=== PATIENT | male | born 1935 | race Caucasian/White ===

== ENCOUNTER 2018-04-27 08:29 | Day surgery (SDC) | payer MEDICARE, OTHER ==
[~2018-04-27] VITALS: Ht 167.6 cm; Wt 110.1 kg
[~2018-04-27 08:29] MED LIST: ACET325 PO; ACET500 PO; ALLO100 PO; AMLO5 PO; CRESTOR PO; Crestor20 MG; FENO145 PO; FLUT.05NI; NEBI10 PO; OMEP40CA12 PO; ROSU10TA PO; TRIHYD253A PO; UBID10; UBID100 PO
[2018-04-27] MEDS ORDERED: QUIN10 PO (09:25)
[2018-04-27] MEDS ORDERED: ALLO300 PO (09:25)
== END 2018-04-27 10:31 | disposition home or self-care (01) ==
LOC: ORSCSDS 08:29
PROVIDERS: Ophthalmology
PROC: 08RJ3JZ Replacement of Right Lens with Synthetic Substitute, Percutaneous Approach (ICD-10-PCS; principal; 2018-04-27 10:00)
DX: H25.11 Age-related nuclear cataract, right eye (principal); I10 Essential (primary) hypertension; G47.33 Obstructive sleep apnea (adult) (pediatric); E78.00 Pure hypercholesterolemia, unspecified; E66.01 Morbid (severe) obesity due to excess calories; Z68.39 Body mass index [BMI] 39.0-39.9, adult; Z79.899 Other long term (current) drug therapy
CPT/HCPCS: J2250; J3010; J3301; J7120; V2632

== ENCOUNTER 2018-06-11 20:09 | Inpatient (IN) | payer MEDICARE, OTHER ==
[~2018-06-11] VITALS: Ht 177.8 cm; Wt 107.1 kg
[~2018-06-11 20:09] MED LIST changes: +ALLO300 PO; +QUIN10 PO
[2018-06-11 20:45] LABS: BASOPHILS ABSOLUTE AUTO 0.02 K/mm3 (0.00-0.23); BASOPHILS PERCENT AUTO 0 % (0-2); EOSINOPHILS ABSOLUTE AUTO 0.04 K/mm3 (0.00-0.68); EOSINOPHILS PERCENT AUTO 0 % (0-6); Hematocrit 44.6 % (37.0-53.0); Hemoglobin 14.4 g/dL (13.5-17.5); IMMATURE GRAN ABSOLUTE AUTO 0.03 K/mm3 (0.00-0.10); IMMATURE GRAN PERCENT AUTO 0 % (0-1); LYMPHOCYTES ABSOLUTE AUTO 0.61 K/mm3 (0.84-5.20); LYMPHOCYTES PERCENT AUTO 6 % (21-46); MONOCYTES ABSOLUTE AUTO 1.24 K/mm3 (0.16-1.47); MONOCYTES PERCENT AUTO 11 % (4-13); Mean Corpuscular HGB 29.5 pg (26.0-34.0); Mean Corpuscular HGB Conc 32.3 g/dL (31.5-36.5); Mean Corpuscular Volume 91 fL (80-100); Mean Platelet Volume 10.8 fL (9.1-12.4); NEUTROPHILS ABSOLUTE AUTO 9.17 K/mm3 (1.96-9.15); NEUTROPHILS PERCENT AUTO 82 % (41-73); Platelet Count 152 K/mm3 (150-400); RDW Coefficient Variation 13.8 % (11.7-14.2); RDW Standard Deviation 46.5 fL (35.1-46.3); Red Blood Cell Count 4.88 M/mm3 (4.30-5.90); White Blood Cell Count 11.11 K/mm3 (4.00-11.30)
[2018-06-11 21:03] LABS: Alanine Aminotransfer (ALT/SGP 584 U/L (12-78); Albumin/Globulin Ratio 0.7 (0.8-1.8); Alk Phos 332 U/L (50-136); Anion Gap 11 mmol/L (6-16); Aspartate Aminotrans (AST/SGOT 516 U/L (12-37); Bilirubin, Total 3.7 mg/dL (0.1-1.0); Blood Urea Nitrogen 20 mg/dL (8-24); Bun/Creatinine Ratio 16.8 (12.0-20.0); CO2, Blood 22 mmol/L (21-32); Calcium, Blood 8.6 mg/dL (8.5-10.1); Chloride, Blood 105 mmol/L (98-108); Creatinine, Blood 1.19 mg/dL (0.60-1.20); Globulin, Blood 4.3 g/dL (2.2-4.0); Glomerular Filtration Rate >60 (60-); Glucose, Blood 161 mg/dL (70-99); Potassium, Blood 3.6 mmol/L (3.5-5.5); Sodium, Blood 138 mmol/L (136-145); Total Protein, Blood 7.3 g/dL (6.4-8.2)
[2018-06-12 00:11] LABS: Source, Urine Clean Catch
[2018-06-12 00:18] LABS: Blood, Urine 3+ (Neg); Glucose Qualitative, Urine Neg (Neg); Ketones, Urine Neg (Neg); Leukocyte Esterase, Urine 1+ (Neg); Nitrite, Urine Neg (Neg); Protein, Urine 3+ (Neg); Urobilinogen, Urine 3+ (Normal)
[2018-06-12 00:25] LABS: Bilirubin, Urine 1+ (Neg)
[2018-06-12 00:26] LABS: Appearance, Urine Clear (Clear); Color, Urine Amber (P-Yellow)
[2018-06-12 00:27] LABS: Bacteria Mod /hpf; Squamous Epithelial Cells Rare /hpf (Few)
--- NOTE | 2018-06-12 08:22 | NUR ---
IN ROOM TO ASSESS PATIENT
[2018-06-12 09:18] LABS: Alanine Aminotransfer (ALT/SGP 514 U/L (12-78); Albumin, Blood 2.4 g/dL (3.4-5.0); Albumin/Globulin Ratio 0.6 (0.8-1.8); Alk Phos 283 U/L (50-136); Anion Gap 6 mmol/L (6-16); Aspartate Aminotrans (AST/SGOT 405 U/L (12-37); Bilirubin, Total 3.1 mg/dL (0.1-1.0); Blood Urea Nitrogen 14 mg/dL (8-24); Bun/Creatinine Ratio 14.7 (12.0-20.0); CO2, Blood 25 mmol/L (21-32); Calcium, Blood 8.3 mg/dL (8.5-10.1); Chloride, Blood 107 mmol/L (98-108); Creatinine, Blood 0.95 mg/dL (0.60-1.20); Globulin, Blood 3.7 g/dL (2.2-4.0); Glomerular Filtration Rate >60 (60-); Glucose, Blood 130 mg/dL (70-99); Potassium, Blood 3.4 mmol/L (3.5-5.5); Sodium, Blood 138 mmol/L (136-145); Total Protein, Blood 6.1 g/dL (6.4-8.2)
[2018-06-12] MEDS ORDERED: Co Q-1010 MG PO (10:04)
--- NOTE | 2018-06-12 12:34 | NUR ---
PT TO IMAGING VIA [facility] FOR MRI STUDY.
--- NOTE | 2018-06-12 18:17 | NUR ---
[facility] TRANSFER SUMMARY: PT IS A&O TO FAMILY AND FOLLOWING DIRECTIONS. IV WAS S.L. FOR TRANSPORT TO [facility]. PT'S CPAP LABELED WITH NAME AND GIVEN TO SANDY ([facility]) TO TRANSFER WITH PT. REPORT CALLED TO MALI GAN AND SHIRLEY ALARCON RN AT [facility] [phone]. PT IS INCONT AT TIMES; ATTENDS CHANGED PRIOR TO D/C. HE HAS BEEN NPO SINCE ADMISSION. AT BEDSIDE DURING TRANSFER SHE IS TAKING HIS OTHER BELONGINGS HOME WITH HER.
--- NOTE | 2018-06-12 18:43 | NUR ---
IV LEFT IN PLACE FOR TRANSFER. RECIEVING RN IS AWARE.
== END 2018-06-12 18:12 | disposition short-term general hospital (02) | DRG 446 ==
LOC: ER 20:09 → MEDS 20:10
PROVIDERS: Physician Assistant; ADMIT Family Medicine
DX: K80.50 Calculus of bile duct without cholangitis or cholecystitis without obstruction (principal); R74.0 Nonspecific elevation of levels of transaminase and lactic acid dehydrogenase [LDH]; N20.0 Calculus of kidney; I10 Essential (primary) hypertension; G47.33 Obstructive sleep apnea (adult) (pediatric); E78.5 Hyperlipidemia, unspecified; M10.9 Gout, unspecified; M54.9 Dorsalgia, unspecified; G89.29 Other chronic pain; Z87.11 Personal history of peptic ulcer disease; Z79.899 Other long term (current) drug therapy; Z87.820 Personal history of traumatic brain injury
CPT/HCPCS: 36415; 74176; 74181; 76705; 80053; 81001; 82140; 83690; 85025; 86301; 87086; 96360-59; 96361-59; 99285-25; J0694; J7030; J7042; J7120

== ENCOUNTER → 2018-09-26 | Outpatient (CLI) | payer MEDICARE, OTHER ==
[~2018-09-26] MED LIST changes: +Co Q-1010 MG PO
== END | disposition home or self-care (01) ==
LOC: LAB SHORT 15:37 → PLD 15:37
DX: C44.42 Squamous cell carcinoma of skin of scalp and neck (principal)
CPT/HCPCS: 88305

== ENCOUNTER → 2021-10-21 | Outpatient (CLI) | payer MEDICARE, OTHER ==
[2021-10-22 11:13] LABS: Microalb/Creat Ratio UR, Rand 528.696 mg/g (0.000-30.000)
== END | disposition home or self-care (01) ==
LOC: LAB 17:15 → LAB SHORT 17:15
PROVIDERS: Physician Assistant
DX: R94.4 Abnormal results of kidney function studies (principal)
CPT/HCPCS: 82043; 82570

== ENCOUNTER 2022-04-09 15:46 | Inpatient (IN) | payer MEDICARE, OTHER ==
[~2022-04-09] VITALS: Ht 177.8 cm; Wt 90.7 kg
[~2022-04-09 15:46] MED LIST changes: +Prinivil10 MG PO; -QUIN10 PO
[2022-04-09 16:11] LABS: BASOPHILS ABSOLUTE AUTO 0.02 K/mm3 (0.00-0.23); BASOPHILS PERCENT AUTO 0 % (0-2); EOSINOPHILS ABSOLUTE AUTO 0.15 K/mm3 (0.00-0.68); EOSINOPHILS PERCENT AUTO 2 % (0-6); Hematocrit 41.6 % (37.0-53.0); Hemoglobin 13.8 g/dL (13.5-17.5); IMMATURE GRAN ABSOLUTE AUTO 0.03 K/mm3 (0.00-0.10); IMMATURE GRAN PERCENT AUTO 0 % (0-1); LYMPHOCYTES ABSOLUTE AUTO 1.68 K/mm3 (0.84-5.20); LYMPHOCYTES PERCENT AUTO 20 % (21-46); MONOCYTES ABSOLUTE AUTO 0.85 K/mm3 (0.16-1.47); MONOCYTES PERCENT AUTO 10 % (4-13); Mean Corpuscular HGB 30.1 pg (26.0-34.0); Mean Corpuscular HGB Conc 33.2 g/dL (31.5-36.5); Mean Corpuscular Volume 91 fL (80-100); Mean Platelet Volume 10.7 fL (9.1-12.4); NEUTROPHILS ABSOLUTE AUTO 5.82 K/mm3 (1.96-9.15); NEUTROPHILS PERCENT AUTO 68 % (41-73); Platelet Count 186 K/mm3 (150-400); RDW Coefficient Variation 13.6 % (11.7-14.2); RDW Standard Deviation 45.4 fL (35.1-46.3); Red Blood Cell Count 4.58 M/mm3 (4.30-5.90); White Blood Cell Count 8.55 K/mm3 (4.00-11.30)
[2022-04-09 16:20] LABS: Albumin, Blood 3.1 g/dL (3.4-5.0); Albumin/Globulin Ratio 0.9 (0.8-1.8); Bilirubin, Total 0.3 mg/dL (0.1-1.0); Bun/Creatinine Ratio 22.2 (12.0-20.0); Calcium, Blood 8.5 mg/dL (8.5-10.1); Creatinine, Blood 1.17 mg/dL (0.60-1.20); Globulin, Blood 3.3 g/dL (2.2-4.0); Potassium, Blood 3.6 mmol/L (3.5-5.5); Total Protein, Blood 6.4 g/dL (6.4-8.2)
[2022-04-09 19:45] LABS: Source, Urine Straight Cath
[2022-04-09 20:04] LABS: Bilirubin, Urine Neg (Neg); Blood, Urine 2+ (Neg); Color, Urine Yellow (P-Yellow); Glucose Qualitative, Urine Neg (Neg); Ketones, Urine Neg (Neg); Leukocyte Esterase, Urine Neg (Neg); Nitrite, Urine Neg (Neg); Protein, Urine 2+ (Neg); Urobilinogen, Urine NORM (Normal)
[2022-04-09 20:16] LABS: Appearance, Urine Hazy (Clear)
[2022-04-09 20:17] LABS: Bacteria Mod /hpf; Squamous Epithelial Cells Rare /hpf (Few); White Blood Cells, Urine 0-2 /hpf (0-5)
[2022-04-09 20:18] LABS: Amorphous Light (0-Heavy); Mucus Light (0-Heavy)
[2022-04-10] MEDS ORDERED: VENL75ER PO (01:28)
[2022-04-10 02:15] LABS: BASOPHILS ABSOLUTE AUTO 0.02 K/mm3 (0.00-0.23); BASOPHILS PERCENT AUTO 0 % (0-2); EOSINOPHILS ABSOLUTE AUTO 0.07 K/mm3 (0.00-0.68); EOSINOPHILS PERCENT AUTO 1 % (0-6); Hematocrit 44.1 % (37.0-53.0); Hemoglobin 14.7 g/dL (13.5-17.5); IMMATURE GRAN ABSOLUTE AUTO 0.03 K/mm3 (0.00-0.10); IMMATURE GRAN PERCENT AUTO 0 % (0-1); LYMPHOCYTES ABSOLUTE AUTO 1.31 K/mm3 (0.84-5.20); LYMPHOCYTES PERCENT AUTO 12 % (21-46); MONOCYTES PERCENT AUTO 8 % (4-13); Mean Corpuscular HGB 29.8 pg (26.0-34.0); Mean Corpuscular HGB Conc 33.3 g/dL (31.5-36.5); Mean Corpuscular Volume 90 fL (80-100); Mean Platelet Volume 10.8 fL (9.1-12.4); NEUTROPHILS PERCENT AUTO 79 % (41-73); Platelet Count 206 K/mm3 (150-400); RDW Coefficient Variation 13.6 % (11.7-14.2); RDW Standard Deviation 45.1 fL (35.1-46.3); Red Blood Cell Count 4.93 M/mm3 (4.30-5.90); White Blood Cell Count 11.33 K/mm3 (4.00-11.30)
[2022-04-10 03:13] LABS: Albumin, Blood 3.4 g/dL (3.4-5.0); Albumin/Globulin Ratio 0.8 (0.8-1.8); Bilirubin, Total 0.3 mg/dL (0.1-1.0); Bun/Creatinine Ratio 22.7 (12.0-20.0); Calcium, Blood 9.5 mg/dL (8.5-10.1); Creatinine, Blood 1.19 mg/dL (0.60-1.20); Potassium, Blood 4.1 mmol/L (3.5-5.5); Total Protein, Blood 7.4 g/dL (6.4-8.2)
--- NOTE | 2022-04-10 05:16 | NUR ---
RECIEVED PATIENT FROM THE ED, ALERT AND ORIENTED TO SELF. STATES HE KNOWS HE IS AT THE HOSPITAL BUT NOT WHEN, WHERE, OR WHY. L SIDE DEFICITES (L ARM DRIFT, WEAK CABLE WIRER, LIPS AND TOUGH). CARDIAC MURMER AND POSSIBLE REGURGITATION HEARD, TELE NS, NO EDEMA AND PULSES STRONG. SKIN RED/LANETTE BUE/FACE/CHEST/BACK AND BILAT FEET. MD CALLED FOR FAILED BEDSIDE SWALLOW EVAL AND HTN, ST EVAL AND HYDRALAZINE FOR SBP >190 ORDER PLACED. ABRAISION/BANDAGE FROM HOME TO L LBOW. NO OTHER ISSUES TO REPORT.
[2022-04-10 10:39] LABS: CPK Creatine Kinase 32 U/L (39-308)
--- NOTE | 2022-04-10 11:17 | NUR ---
"Spiritual Care | Pt. Request. Pt. is resting but responds when I enter the room. Pt. displays evidence of being pleasantly confused. However, Pt. clearly remembers the location of his home and can verbalize the driving directions. Establish a lite rapport and pray with Pt. Pt. verbalized gratitude for the spiritual care visit."
--- NOTE | 2022-04-10 17:28 | NUR ---
SHIFT SUMMARY: PT A&O X1-2. PT PLEASANT AND COOPERATIVE WITH ALL CARE. SPEECH THERAPY ARRIVED JUST AFTER SHIFT CHANGE THIS AM AND DETERMINED PT CAN HAVE SOFT BITE SIZED FOODS AND MEDS WHOLE WITH WATER. NO CHOKING OR ASPIRATION THIS SHIFT. PT 2 PERSON ASSIST WITH ALL TRANSFERS. PT VERY HARD OF HEARING. 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 PT RECEIVED SEVERAL TESTS TODAY INCLUDING CEREBRAL DUPLEX, ECHO, AND MRI. WOULD LIKE TO BE PRESENT OR ON PHONE WHEN RESULTS ARRIVE. PLAN IS FOR PT TO GO TO SNF AFTER DISCHARGE. PT HAS EQUAL STRENGTH IN BOTH HANDS AND LEGS. APPEARS TO BE EATING WELL. CALL LIGHT IN REACH. BED IN LOWEST POSITION. WILL CONTINUE TO MONITOR.
--- NOTE | 2022-04-11 04:47 | NUR ---
SHIFT SUMMARY; NO ACUTE CHANGES OVERNIGHT. THE PT RESTED IN BED T/O THE NIGHT. THE PT IS AXO X1, BUT IT IS HARD TO FULLY ASSESS THE PTS ORIENTATION GIVEN HE IS ONLY ABLE TO RESPOND IN 3-4 WORD SENTENCES AND TAKES LONG PAUSES BEFORE ANSWERING A QUESTION. THE PT IS A MAX TWO PERSON ASSIST TO THE BEDSIDE CHAIR FROM THE BED. THE PT WAS PLEASANT AND COOPERATIVE W/ CARE BUT CONFUSED AT TIMES. TELE IS IN PLACE, NSR 60/70'S. THE PT DENIES ANY N/V, CHEST PAIN/PRESSURE, OR SOB. CURRENTLY THE PT IS RESTING IN BED WITH THE BED IN THE LOWEST POSITION AND THE CALL LIGHT AT BEDSIDE.
--- NOTE | 2022-04-11 09:18 | NUR ---
pt laying in bed wakes easily, got him up to chair after am care, and briefs changed, with two person and gait belt assist, follows commands but is very slow in movement, able to bear weight, a/ox2, slow to respond, lungs are clear t/o, a bit dim in bases, on r/a, no cough noted, hrr, loud murmur noted, no edema noted, ppp+1, cap refill <3sec, vs stable, afebrile, piv site to rfa, site is clear and patent, btx4, abd flat soft nontender, voids without diff, incont of bowel/bladder, briefs in place, skin has multiple bruisings, and small skin tear to elbows, with dressings in place, otherwise c/w/d, aaron, yandel, santino, took po meds with applesauce, did not swallow, did better with them crushed, call light in reach.
--- NOTE | 2022-04-11 18:26 | NUR ---
Pt had an uneventful day, has ambulated around the room a number of times with deployment manager, had a bath, and in chair for meals, plan for snf tomorrow, no further changes this shift, call light in reach.
--- NOTE | 2022-04-12 04:03 | NUR ---
SHIFT SUMMARY; NO ACUTE CHANGES THROUGHOUT THE NIGHT. THE PT IS AXO X2, SLOW TO RESPOND. TELE IS IN PLACE, NSR 70/80'S THROUGHOUT THE NIGHT. THE PT IS ABLE TO SPEAK IN SHORT SENTENCES TONIGHT AND ANSWERS MOST QUESTIONS APPOPIRATELY. PTS DAUGHTER CALLED WANTING UPDATE, TOLD HER THE PLAN IS FOR PT TO DC TO [facility] TODAY. THE PT DENIES ANY PAIN, N/V, SOB OR CHEST PAIN/PRESSURE. THE PT HAS SLEPT FOR THE ENTIRETY OF THE NIGHT AND IS DOING SO PRESENTLY. THE BED IS IN THE LOWEST POSITION AND THE CALL LIGHT IS AT BEDSIDE.
[2022-04-12 04:43] LABS: BASOPHILS ABSOLUTE AUTO 0.03 K/mm3 (0.00-0.23); BASOPHILS PERCENT AUTO 0 % (0-2); EOSINOPHILS ABSOLUTE AUTO 0.22 K/mm3 (0.00-0.68); EOSINOPHILS PERCENT AUTO 2 % (0-6); Hematocrit 41.6 % (37.0-53.0); Hemoglobin 13.7 g/dL (13.5-17.5); IMMATURE GRAN ABSOLUTE AUTO 0.03 K/mm3 (0.00-0.10); IMMATURE GRAN PERCENT AUTO 0 % (0-1); LYMPHOCYTES ABSOLUTE AUTO 2.26 K/mm3 (0.84-5.20); LYMPHOCYTES PERCENT AUTO 20 % (21-46); MONOCYTES ABSOLUTE AUTO 1.22 K/mm3 (0.16-1.47); MONOCYTES PERCENT AUTO 11 % (4-13); Mean Corpuscular HGB 29.8 pg (26.0-34.0); Mean Corpuscular HGB Conc 32.9 g/dL (31.5-36.5); Mean Corpuscular Volume 91 fL (80-100); NEUTROPHILS ABSOLUTE AUTO 7.59 K/mm3 (1.96-9.15); NEUTROPHILS PERCENT AUTO 67 % (41-73); Platelet Count 216 K/mm3 (150-400); RDW Coefficient Variation 13.6 % (11.7-14.2); RDW Standard Deviation 45.3 fL (35.1-46.3); Red Blood Cell Count 4.59 M/mm3 (4.30-5.90); White Blood Cell Count 11.35 K/mm3 (4.00-11.30)
[2022-04-12 05:03] LABS: Albumin, Blood 3.2 g/dL (3.4-5.0); Albumin/Globulin Ratio 0.9 (0.8-1.8); Bilirubin, Total 0.3 mg/dL (0.1-1.0); Bun/Creatinine Ratio 27.1 (12.0-20.0); Calcium, Blood 9.4 mg/dL (8.5-10.1); Creatinine, Blood 1.29 mg/dL (0.60-1.20); Globulin, Blood 3.4 g/dL (2.2-4.0); Total Protein, Blood 6.6 g/dL (6.4-8.2)
--- NOTE | 2022-04-12 08:00 | NUR ---
Pt laying in bed, sleepy, wakes easily, a/ox2, mentasta, follows commands well, up to chair for breakfast, states hes doing ok denies pain, states he had a good night, lungs are clear t/o, resp even and unlabored, no cough noted, hrr,loud murmur noted, no edema noted, ppp+1, cap refill <3sec, vs stable, afebrile, piv site to rfa site is clear and patent, btx4, abd flat soft nontender, incont, briefs in place, skin c/w/d, maew, santino, call light in reach.
[2022-04-12 10:12] LABS: Influenza A, PCR NEGATIVE (NEGATIVE); Influenza B, PCR NEGATIVE (NEGATIVE); Resp Syncytial Virus, PCR NEGATIVE (NEGATIVE); SARS-Cov-2 (COVID-19) PCR, MMC NEGATIVE (NEGATIVE)
--- NOTE | 2022-04-12 15:20 | NUR ---
pt is scheduled to go to [facility] today, gave report to Lindsay, waiting on transport, is concerned he is so sleepy, asked Dr. Courtney to speak with her before he leaves. iv was removed intact, pt dressed and ready to go. call light in reach.
--- NOTE | 2022-04-12 15:47 | NUR ---
pt spoke with Dr. Courtney, feels much better, pt left via gurney with [facility] transport with all belongings. report was given.
== END 2022-04-12 15:47 | DRG 65 ==
LOC: ER 15:46 → ERHOLD 04-10 01:10 → MEDS 04-10 01:10
PROVIDERS: Emergency Medicine; Internal Medicine; ADMIT Internal Medicine
DX: I63.81 Other cerebral infarction due to occlusion or stenosis of small artery (principal); G81.91 Hemiplegia, unspecified affecting right dominant side; I50.32 Chronic diastolic (congestive) heart failure; R47.81 Slurred speech; E78.5 Hyperlipidemia, unspecified; K21.9 Gastro-esophageal reflux disease without esophagitis; M10.9 Gout, unspecified; M54.9 Dorsalgia, unspecified; Z66 Do not resuscitate; G89.29 Other chronic pain; F32.A Depression, unspecified; H26.9 Unspecified cataract; G47.33 Obstructive sleep apnea (adult) (pediatric); F01.50 Vascular dementia, unspecified severity, without behavioral disturbance, psychotic disturbance, mood disturbance, and anxiety; I11.0 Hypertensive heart disease with heart failure; I35.8 Other nonrheumatic aortic valve disorders; R47.01 Aphasia; I34.0 Nonrheumatic mitral (valve) insufficiency; Z20.822 Contact with and (suspected) exposure to COVID-19; Z90.49 Acquired absence of other specified parts of digestive tract; Z87.820 Personal history of traumatic brain injury; Z79.899 Other long term (current) drug therapy; Z86.79 Personal history of other diseases of the circulatory system; Z98.890 Other specified postprocedural states; Z87.891 Personal history of nicotine dependence
CPT/HCPCS: 0241U; 36415; 51701; 70450; 70551; 71045; 80053; 81001; 82550; 83880; 84484; 85025; 87086; 92610; 93005; 93010; 93306; 93880; 96372; 96374; 96375; 97110; 97162; 97166; 97530; 99285-25; A9270; J0360; J1650; J1940; J2405

== ENCOUNTER 2022-04-22 00:06 | Observation (INO) | payer MEDICARE, OTHER ==
[~2022-04-22] VITALS: Ht 170.2 cm; Wt 83.9 kg
[~2022-04-22 00:06] MED LIST changes: +VENL75ER PO
[2022-04-22] MEDS ORDERED: ASPI81CH PO (00:21)
[2022-04-22] MEDS ORDERED: LOPE2C PO (00:22)
[2022-04-22] MEDS ORDERED: CARV6.25 PO (00:22)
[2022-04-22] MEDS ORDERED: DOCU100 PO (00:22)
[2022-04-22] MEDS ORDERED: ARTIFICIAL TEAR15 M2 OP (00:23)
[2022-04-22] MEDS ORDERED: ROSU10TA PO (00:23)
[2022-04-22 00:47] LABS: BASOPHILS ABSOLUTE AUTO 0.04 K/mm3 (0.00-0.23); BASOPHILS PERCENT AUTO 0 % (0-2); EOSINOPHILS ABSOLUTE AUTO 0.21 K/mm3 (0.00-0.68); EOSINOPHILS PERCENT AUTO 2 % (0-6); Hematocrit 40.2 % (37.0-53.0); Hemoglobin 13.4 g/dL (13.5-17.5); IMMATURE GRAN ABSOLUTE AUTO 0.07 K/mm3 (0.00-0.10); IMMATURE GRAN PERCENT AUTO 1 % (0-1); LYMPHOCYTES ABSOLUTE AUTO 3.14 K/mm3 (0.84-5.20); LYMPHOCYTES PERCENT AUTO 23 % (21-46); MONOCYTES ABSOLUTE AUTO 1.31 K/mm3 (0.16-1.47); MONOCYTES PERCENT AUTO 10 % (4-13); Mean Corpuscular HGB 29.9 pg (26.0-34.0); Mean Corpuscular HGB Conc 33.3 g/dL (31.5-36.5); Mean Corpuscular Volume 90 fL (80-100); Mean Platelet Volume 11.2 fL (9.1-12.4); NEUTROPHILS PERCENT AUTO 65 % (41-73); Platelet Count 249 K/mm3 (150-400); RDW Coefficient Variation 13.5 % (11.7-14.2); RDW Standard Deviation 44.7 fL (35.1-46.3); Red Blood Cell Count 4.48 M/mm3 (4.30-5.90); White Blood Cell Count 13.57 K/mm3 (4.00-11.30)
[2022-04-22 05:06] LABS: International Normalized Ratio 1.08; Prothrombin Time Results 11.3 Sec (9.7-11.5)
[2022-04-22 05:08] LABS: Albumin, Blood 3.1 g/dL (3.4-5.0); Albumin/Globulin Ratio 0.9 (0.8-1.8); Bilirubin, Total 0.2 mg/dL (0.1-1.0); Bun/Creatinine Ratio 27.7 (12.0-20.0); Calcium, Blood 8.7 mg/dL (8.5-10.1); Creatinine, Blood 1.19 mg/dL (0.60-1.20); Globulin, Blood 3.5 g/dL (2.2-4.0); Potassium, Blood 4.4 mmol/L (3.5-5.5); Total Protein, Blood 6.6 g/dL (6.4-8.2)
[2022-04-22] MEDS ORDERED: NEBI10 PO (07:25)
--- NOTE | 2022-04-22 07:49 | NUR ---
FURNACE HAND SUMMARY: A&Ox2-3. PLEASANT AND COOPERATIVE WITH CARE. DOES NOT CALL AND DOES NOT COMMUNICATE NEEDS EFFECTIVELY. EMR DOWN DURING ADMIT AND ORDERS RECEIVED IN WRITING; SOME MISSING AND AM GETTING CLARIFICATION BY DAYSHIFT RN. PT HAS TELE. INCONTINENT OF GELATINOUS REDDISH BROWN STOOL. NPO AND GI CONSULT ANTICIPATED TODAY. LABS TODAY. PROTONIX GTTS RUNNING. NO C/O PAIN OR DISCOMFORT. REPORT TO ONCOMING RN.
[2022-04-22 08:56] LABS: Hematocrit 38.6 % (37.0-53.0); Hemoglobin 12.6 g/dL (13.5-17.5)
--- NOTE | 2022-04-22 10:38 | NUR ---
PT EVAL, XR ABD 1V PER V.O. FROM DR. HAYNES, ORDER PT EVAL AND ABD XR.
--- NOTE | 2022-04-22 11:47 | NUR ---
UPon receiving a referral for spiritual care, I visited the patient. Patient is lying in bed and struggles to communicate. Spouse, Sapphire, is bedside and speaks of patient's medical history, the struggles she has had since his traumatic brain injury in 2014 and the challenges she is having as she attepts to navigate the next steps for manager terminal care for the patient. She is tearful at times as she shares her story but also hopeful as she talks about the solid support she receives from her grown children and close friends. I normalize Sapphire's experience, and provide therapeutic listening, gentle juvenile counselor and emotional support. I also contact Palliative care who agree to visit with Sapphire to answer her questions. Sapphire responds well and shows signs of being comforted. I will continue to remain available to patient and family.
[2022-04-22 14:38] LABS: Hematocrit 39.1 % (37.0-53.0); Hemoglobin 12.9 g/dL (13.5-17.5)
--- NOTE | 2022-04-22 14:58 | NUR ---
Called to meet with for review of hospice care. Pt showing significant starin from care giving. She has been reviewing [facility] and hoping to get him into [facility]. Gently reviewed the support they will both recieve for his care as she states he is declining more and having more aggitation. 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 He has a polst for 2014 that states full treatment. The have an advance directive that states DNR. Review with confirms DNR status is correct. gave review letter of agencies and will complete letter of chaoice with her when she returne. She lates stated she has a friend that works at [employer] and made that choice.
--- NOTE | 2022-04-22 16:40 | NUR ---
letter of choice completed. will bring in bipap. Hope is to DC to memory care.
--- NOTE | 2022-04-22 17:21 | NUR ---
Shift Summary A/O to self and family. Answering questions appropriately. Patient is still NPO. Giving meds with sips of water. 2p turn/reposition. Incontinent. No bloody stools this shift. Voiding well. No complaints of pain or nausea. at bedside. Palliative Care consult placed, they were in to see patient (see note).
--- NOTE | 2022-04-22 22:07 | NUR ---
DR BURGESS BEDSIDE AND SPOKE WITH PATIENT. POSSIBLE SCOPE FOR TOMORROW. HE WILL CALL [facility] TOMORROW TO DISCUSS. IN THE MEANTIME ORDERS GIVEN FOR CLEAR LIQUID DIET
--- NOTE | 2022-04-23 01:18 | NUR ---
DR BURGESS CALLED ME AND GAVE ORDERS FOR REGULAR DIET. HE STATED THAT HE IS NOT GOING TO SCOPE PATIENT AFTER REVIEWING HIS CHART. HE WILL CONTACT IN MORNING AND DISCUSS WITH HER.
--- NOTE | 2022-04-23 05:47 | NUR ---
PATIENT ALERT TO SELF AND CONFUSED, ROOM AIR, HOME CPAP IN ROOM, INCONTINENT, LW IV W/ PROTONIX GTT RUNNING, REGULAR DIET, POSSIBLE D/C HOME TODAY. DR BURGESS CAME TO SEE PATIENT LAST NIGHT AND REVIEWED CHART. HE WILL BE CALLING TO DISCUSS PLAN OF CARE. NO EVENTS OVERNIGHT
--- NOTE | 2022-04-23 17:17 | NUR ---
SHIFT SUMMARY PATIENT IS ALERT BUT NOT ORIENTED. PATIENT HAS HAD NO ACUTE EVENTS THIS SHIFT. PATIENT IS PLANNING ON RETURNING TO SNF WHEN APPROPRIATE. VITAL SIGNS REVIEWED. PATIENT HAS NOT COMPLAINED OF PAIN, NAUSEA, SOB OR VOMITTING. PATIENTS VISITED MOST OF SHIFT. TAFE LECTURER TALKED WITH AND PATIENT FOR AWHILE THIS AFTERNOON. BED IN LOCKED AND LOWEST POSITION. CALL LIGHT IN PLACE. WILL MONITOR UNTIL SHIFT CHANGE.
--- NOTE | 2022-04-24 05:57 | NUR ---
A/Ox1-2; SELF AND PLACE. CALM AND COOPERATIVE. TELE: SR WITH HR 70s. INC AND IN ATTENDS. BEDREST; Q2 TURN. CONTINUOUS IV PROTONIX PER ORDERS. SLEEP PROMOTED. CALL LIGHT IN REACH; ENCOURAGED TO MAKE NEEDS KNOWN.
--- NOTE | 2022-04-24 14:23 | NUR ---
pt returning to [facility] per md order. concerned about rehab. Review of patient needs and that he is not eminent and may gain some comfort from the rehab. Advised her that if he does not do well with rehab not to get him in the [place] of back and forth to hospital. will discuss with [facility] pt on waiting list for [facility]. SHe will negotiaite care with [facility] for senior living until hospice availble at [facility] if rehab fails.
[2022-04-24 15:07] LABS: Influenza A, PCR NEGATIVE (NEGATIVE); Influenza B, PCR NEGATIVE (NEGATIVE); Resp Syncytial Virus, PCR NEGATIVE (NEGATIVE); SARS-Cov-2 (COVID-19) PCR, MMC NEGATIVE (NEGATIVE)
--- NOTE | 2022-04-24 16:03 | NUR ---
PT DISCHARGED REPORT CALLED TO MALIK DURAN AT [facility]. TO TO BE TRANSREED AT 1700 TO [facility]
[2022-04-24] MEDS ORDERED: MIRALAX17 GM PO (16:07)
[2022-04-24] MEDS ORDERED: OMEP20ER PO (16:09)
--- NOTE | 2022-04-24 17:40 | NUR ---
PT DISCHARGED PT TRANSFERED TO [facility] VIA WHEELCHAIR AT THIS TIME. ACCOMPANIED BY HIS AND ESCORT
== END 2022-04-24 16:24 ==
LOC: ER 00:06 → MEDS 00:07 → ER 01:05 → MEDS 02:36
PROVIDERS: Family Medicine; Internal Medicine Endocrinology, Diabetes & Metabolism; Student in an Organized Health Care Education/Training Program; ADMIT Internal Medicine
DX: K92.2 Gastrointestinal hemorrhage, unspecified (principal); K64.8 Other hemorrhoids; D62 Acute posthemorrhagic anemia; I11.0 Hypertensive heart disease with heart failure; I50.32 Chronic diastolic (congestive) heart failure; E78.5 Hyperlipidemia, unspecified; G47.33 Obstructive sleep apnea (adult) (pediatric); F32.9 Major depressive disorder, single episode, unspecified; F80.9 Developmental disorder of speech and language, unspecified; Z86.73 Personal history of transient ischemic attack (TIA), and cerebral infarction without residual deficits; Z99.89 Dependence on other enabling machines and devices
CPT/HCPCS: 0241U; 36415; 74177; 80053; 82272; 85014; 85018; 85025; 85610; 85730; 86850; 86900; 86901; 93005; 93010; 97110; 97162; 97530; 99285-25; A9270; C9113; J1100; J1885; J2405; J2704; J3010; Q9967

== ENCOUNTER → 2023-04-22 | Outpatient (CLI) | payer MEDICARE, OTHER ==
[~2023-04-22] MED LIST changes: +ARTIFICIAL TEAR15 M2 OP; +ASPI81CH PO; +Acetaminophen650 M1 PO; +CARV6.25 PO; +CIPR500 PO; +DOCU100 PO; +LOPE2C PO; +METR500 PO; +MIRALAX17 GM PO; +OMEP20ER PO; +SINEMET 25-1001 EAC1 PO
[2023-04-22 15:07] LABS: BASOPHILS ABSOLUTE AUTO 0.04 K/mm3 (0.00-0.23); BASOPHILS PERCENT AUTO 0 % (0-2); EOSINOPHILS ABSOLUTE AUTO 0.16 K/mm3 (0.00-0.68); EOSINOPHILS PERCENT AUTO 2 % (0-6); Hematocrit 39.9 % (37.0-53.0); Hemoglobin 12.5 g/dL (13.5-17.5); IMMATURE GRAN ABSOLUTE AUTO 0.02 K/mm3 (0.00-0.10); IMMATURE GRAN PERCENT AUTO 0 % (0-1); LYMPHOCYTES ABSOLUTE AUTO 2.37 K/mm3 (0.84-5.20); LYMPHOCYTES PERCENT AUTO 26 % (21-46); MONOCYTES ABSOLUTE AUTO 0.96 K/mm3 (0.16-1.47); MONOCYTES PERCENT AUTO 10 % (4-13); Mean Corpuscular HGB 28.9 pg (26.0-34.0); Mean Corpuscular HGB Conc 31.3 g/dL (31.5-36.5); Mean Corpuscular Volume 92 fL (80-100); Mean Platelet Volume 12.1 fL (9.1-12.4); NEUTROPHILS ABSOLUTE AUTO 5.73 K/mm3 (1.96-9.15); NEUTROPHILS PERCENT AUTO 62 % (41-73); Platelet Count 294 K/mm3 (150-400); RDW Coefficient Variation 14.3 % (11.7-14.2); Red Blood Cell Count 4.32 M/mm3 (4.30-5.90); White Blood Cell Count 9.28 K/mm3 (4.00-11.30)
[2023-04-22 15:33] LABS: Albumin, Blood 3.4 g/dL (3.4-5.0); Bilirubin, Total 0.3 mg/dL (0.1-1.0); Bun/Creatinine Ratio 28.1 (12.0-20.0); Calcium, Blood 9.4 mg/dL (8.5-10.1); Creatinine, Blood 1.21 mg/dL (0.60-1.20); Globulin, Blood 3.5 g/dL (2.2-4.0); Potassium, Blood 4.7 mmol/L (3.5-5.5); Total Protein, Blood 6.9 g/dL (6.4-8.2)
== END | disposition home or self-care (01) ==
LOC: LAB SHORT 14:16 → LAB 14:16
PROVIDERS: Family Medicine
DX: I10 Essential (primary) hypertension (principal)
CPT/HCPCS: 80053; 85025

== ENCOUNTER → 2023-04-27 | Outpatient (CLI) | payer MEDICARE, OTHER ==
[2023-04-27 12:06] LABS: Source, Urine Clean Catch
[2023-04-27 13:04] LABS: Bilirubin, Urine Neg (Neg); Blood, Urine Neg (Neg); Glucose Qualitative, Urine Neg (Neg); Ketones, Urine Neg (Neg); Leukocyte Esterase, Urine Neg (Neg); Nitrite, Urine Neg (Neg); Protein, Urine 2+ (Neg); Urobilinogen, Urine NORM (Normal)
[2023-04-27 13:20] LABS: Appearance, Urine Clear (Clear); Color, Urine Yellow (P-Yellow)
[2023-04-27 13:23] LABS: Bacteria Few /hpf; Red Blood Cells, Urine 0-2 /hpf (0-2); Squamous Epithelial Cells Rare /hpf (Few); White Blood Cells, Urine 0-2 /hpf (0-5)
[2023-04-27 13:24] LABS: Mucus Light (0-Heavy)
== END | disposition home or self-care (01) ==
LOC: LAB SHORT 11:00 → LAB 11:00
PROVIDERS: Family Medicine
DX: N39.41 Urge incontinence (principal)
CPT/HCPCS: 81001